=== PATIENT | male | born 1940 | race Caucasian/White ===

== ENCOUNTER 2016-07-03 13:36 | Emergency (ER) | payer MEDICARE, OTHER ==
[2016-07-03] MEDS ORDERED: Sodium Chloride 0.9% 10 ML Syringe FLUSH PRN (13:55)
--- NOTE | 2016-07-03 13:58 | EDM.PDOC ---
ED HPI GI/ABDOMINAL - General Chief Complaint: Gastrointestinal Problem Stated Complaint: AMBULANCE Time Seen by Provider: 07/03/16 13:55 Source of Information: Reports: Patient History Limitations: Reports: No limitations - History of Present Illness INITIAL COMMENTS - FREE TEXT/NARRATIVE: Richard Padron is a 76 year old male with a medical history of Parkinsons disease and hyperlipidemia presenting to the ED via EMS with bloody stools. He was constipated 3 days ago and yesterday he started having stools spontaneously. The stools were very dark and black. Then this morning he had 5 maroon to bright red colored watery stools all in a row. The amount of blood concerned him and he called EMS. His belly has been "queasy" for the last few days but he hasn't had pain. He denies vomiting. He denies a history of gastritis, diverticulitis, or colon cancer. He's never had a colonoscopy before because he does not doctor much. He takes a 325 mg aspirin daily due to a strong family history of stroke. He denies NSAID usage. He denies recent travel. He does not use alcohol or illicit drugs. He smoked cigarettes 25 years ago. - Related Data Allergies/ADRs: Allergies Allergy/AdvReac Type Severity Reaction Status Date / Time No Known Allergies Allergy Verified 07/03/16 13:50 Home Meds: Home Meds Aspirin 1 tab PO DAILY 07/03/16 [History] Carbidopa/Levodopa [Carbidopa-Levodopa 25-250] 1.5 tab PO QID 07/03/16 [History] Glucosamine HCl [Glucosamine] 750 mg PO BID 07/03/16 [History] atorvaSTATin [Lipitor] 20 mg PO DAILY 07/03/16 [History] Past Medical History Cardiovascular History: Reports: High cholesterol Neurological History: Reports: Other (see below) Other Neuro History: Parkinsons Disease Social & Family History - Family History Other HEENT Family History: Stroke ED ROS GENERAL - Review of Systems Review Of Systems: See Below Constitutional: Denies: fever, chills, fatigue, diaphoresis HEENT: Reports: No symptoms Respiratory: Denies: Shortness of Breath, Wheezing, Cough Cardiovascular: Denies: Chest pain, Dyspnea on exertion, Lightheadedness, Palpitations, Syncope Endocrine: Reports: no symptoms GI/Abdominal: Reports: Other (see HPI) : Reports: no symptoms Musculoskeletal: Reports: no symptoms Skin: Reports: no symptoms. Denies: rash Neurological: Reports: No Symptoms. Denies: Headache, Numbness, Paresthesia Psychiatric: Reports: No symptoms Hematologic/Lymphatic: Reports: no symptoms Immunologic: Reports: no symptoms ED EXAM, GI/ABD - Physical Exam Exam: See Below Exam Limited By: No limitations General Appearance: alert, WD/WN, no apparent distress Eyes: bilateral: normal appearance, EOMI Ears: normal external exam Nose: normal inspection, normal mucosa Throat/Mouth: Normal inspection, Normal lips, Normal teeth, Normal oropharynx, No airway compromise Head: atraumatic, normocephalic Neck: normal inspection, supple, non-tender Respiratory/Chest: other (diminished breath sounds throughout). No: respiratory distress, crackles, rales, rhonchi, wheezing GI/Abdominal: soft, non tender, no distention, hyperactive bowel sounds. No: guarding, rebound, rigidity, McBurney's sign, Matthews's sign Rectal (Males) Exam: Normal rectal tone, Bloody Stool, Heme + stool, Other ( pedunculated skin tag at the 2 oclock position on the external rectum). No: Mass, Perirectal abscess, Rectal fissure, Tenderness Back Exam: normal inspection, full range of motion Extremities: normal inspection, normal range of motion, no pedal edema Neurological: alert, oriented, CN II-XII intact, normal cognition, no motor/ sensory deficits Psychiatric: normal affect, normal mood Skin Exam: Warm, Dry, No rash Lymphatic: no adenopathy Course - Vital Signs Last Recorded V/S: Last Vital Signs Temp 97.6 F 07/03/16 13:37 Pulse 84 07/03/16 13:37 Resp 16 07/03/16 13:37 BP 109/65 07/03/16 13:37 Pulse Ox 97 07/03/16 13:37 - Orders/Labs/Meds Orders: Active Orders 24 hr Category Date Time Status Peripheral IV Care [RC] . DIRECTED Care 07/03/16 13:56 Active Nothing per Oral Now Diet [DIET] Diet 07/03/16 Dinner Active Sodium Chloride 0.9% [Saline Flush] Med 07/03/16 13:55 Active 10 ml FLUSH ASDIRECTED PRN Peripheral IV Insertion Adult [OM.PC] Routine Oth 07/03/16 13:55 Ordered Medication Orders Sodium Chloride (Saline Flush) 10 ml FLUSH ASDIRECTED PRN PRN Reason: Keep Vein Open Last Admin: 07/03/16 14:10 Dose: 10 ml Labs: Laboratory Tests 07/03/16 07/03/16 07/03/16 Range/Units 14:00 14:00 14:00 WBC 7.0 (5.0-10.0) 10^3/uL RBC 3.73 L (4.6-6.2) 10^6/uL Hgb 11.3 L (14.0-18.0) g/dL Hct 33.8 L (40.0-54.0) % MCV 90.6 (80-100) fL MCH 30.3 (27.0-34.0) pg MCHC 33.4 (33.0-35.0) g/dL Plt Count 226 (150-450) 10^3/uL Neut % (Auto) 76.5 H (42.2-75.2) % Lymph % (Auto) 16.6 L (20.5-50.1) % Sawyer % (Auto) 6.0 (2-8) % Eos % (Auto) 0.6 L (1.0-3.0) % Baso % (Auto) 0.3 (0.0-1.0) % Sodium 138 (135-145) mmol/L Potassium 4.9 (3.6-5.0) mmol/L Chloride 107 (101-111) mmol/L Carbon Dioxide 25.0 (21.0-31.0) mmol/L Anion Gap 10.9 BUN 40 H (7-18) mg/dL Creatinine 0.8 (0.6-1.3) mg/dL Est Cr Clr Drug Dosing 73.24 mL/min Estimated GFR (MDRD) > 60 BUN/Creatinine Ratio 50.00 Glucose 125 H (74-105) mg/dL Lactic Acid 1.2 (0.5-2.2) mmol/L Calcium 8.6 (8.4-10.2) mg/dl Total Bilirubin 1.1 H (0.2-1.0) mg/dL AST 15 (10-42) IU/L ALT < 5 L (10-60) IU/L Alkaline Phosphatase 38 L (42-121) IU/L Total Protein 5.7 L (6.7-8.2) g/dl Albumin 3.7 (3.2-5.5) g/dl Globulin 2.0 Albumin/Globulin Ratio 1.85 Lipase 24 (22-51) U/L Blood Type Gel Antibody Screen 07/03/16 Range/Units 14:00 WBC (5.0-10.0) 10^3/uL RBC (4.6-6.2) 10^6/uL Hgb (14.0-18.0) g/dL Hct (40.0-54.0) % MCV (80-100) fL MCH (27.0-34.0) pg MCHC (33.0-35.0) g/dL Plt Count (150-450) 10^3/uL Neut % (Auto) (42.2-75.2) % Lymph % (Auto) (20.5-50.1) % Sawyer % (Auto) (2-8) % Eos % (Auto) (1.0-3.0) % Baso % (Auto) (0.0-1.0) % Sodium (135-145) mmol/L Potassium (3.6-5.0) mmol/L Chloride (101-111) mmol/L Carbon Dioxide (21.0-31.0) mmol/L Anion Gap BUN (7-18) mg/dL Creatinine (0.6-1.3) mg/dL Est Cr Clr Drug Dosing mL/min Estimated GFR (MDRD) BUN/Creatinine Ratio Glucose (74-105) mg/dL Lactic Acid (0.5-2.2) mmol/L Calcium (8.4-10.2) mg/dl Total Bilirubin (0.2-1.0) mg/dL AST (10-42) IU/L ALT (10-60) IU/L Alkaline Phosphatase (42-121) IU/L Total Protein (6.7-8.2) g/dl Albumin (3.2-5.5) g/dl Globulin Albumin/Globulin Ratio Lipase (22-51) U/L Blood Type AB POSITIVE Gel Antibody Screen Negative Meds: Medications Generic Name Dose Route Start Last Admin Trade Name Freq PRN Reason Stop Dose Admin Sodium Chloride 10 ml 07/03/16 13:55 07/03/16 14:10 Saline Flush FLUSH 10 ml ASDIRECTED PRN Administration Keep Vein Open Discontinued Medications Generic Name Dose Route Start Last Admin Trade Name Wanda PRN Reason Stop Dose Admin Iopamidol 100 ml 07/03/16 14:28 07/03/16 15:00 Isovue-300 (61%) IVPUSH 07/03/16 14:29 100 ml ONETIME ONE Administration Pantoprazole Sodium 40 mg 07/03/16 14:30 07/03/16 14:30 Protonix Iv IVPUSH 07/03/16 14:31 40 mg ONETIME ONE Administration - Re-Assessments/Exams Free Text/Narrative Re-Assessment/Exam: Iv access obtained. Type and screen ordered. CBC shows hemoglobin of 11.3. Hemoccult stool testing positive. Kidney function normal. CT chest/abd/pelvis shows changes in the distal stomach and duodenum consistent with PUD without perforation. Protonix 40 mg IV push given. 07/03/16 16:00 Departure - Departure Time of Disposition: 16:03 Disposition: DC/Tfer to [facility] 02 Condition: fair Clinical Impression: Upper GI bleed - My Orders Last 24 Hours: My Active Orders 07/03/16 13:55 Sodium Chloride 0.9% [Saline Flush] 10 ml FLUSH ASDIRECTED PRN Peripheral IV Insertion Adult [OM.PC] Routine 07/03/16 13:56 Peripheral IV Care [RC] . DIRECTED 07/03/16 Dinner Nothing per Oral Now Diet [DIET] - Assessment/Plan Last 24 Hours: My Active Orders 07/03/16 13:55 Sodium Chloride 0.9% [Saline Flush] 10 ml FLUSH ASDIRECTED PRN Peripheral IV Insertion Adult [OM.PC] Routine 07/03/16 13:56 Peripheral IV Care [RC] . DIRECTED 07/03/16 Dinner Nothing per Oral Now Diet [DIET] Assessment:: Likely Upper GI Bleed Plan: Patient presenting with signs and symptoms of upper GI bleed. CT of the abdomen is supportive of this. Hemoglobin and vitals stable. Discussed the case with the hospitalist in [place] who has agreed to direct admission of the patient. Patient last ate at 8 AM ([place]). Protonix given. IV access obtained. Vitals are stable. [facility] ambulance for transfer.
[2016-07-03 14:11] VITALS: BP 109/65
[2016-07-03] MEDS ORDERED: Iopamidol 612 MG/ML 100 ML Bottle IVPUSH ONE (14:28)
[2016-07-03] MEDS ORDERED: Pantoprazole 40 MG Vial IVPUSH ONE (14:30)
[2016-07-03 14:35] LABS: CHLORIDE,CL 107 mmol/L (101-111); SODIUM,NA 138 mmol/L (135-145)
== END 2016-07-03 16:30 ==
LOC: DL.ED 13:36
DX: K92.2 Gastrointestinal hemorrhage, unspecified (principal); E78.00 Pure hypercholesterolemia, unspecified; Z79.82 Long term (current) use of aspirin; Z79.899 Other long term (current) drug therapy
CPT/HCPCS: 36415; 71260; 74177; 80053; 82272; 83605; 83690; 85025; 86850; 86900; 86901; 96374; 99285; C9113; J7050; Q9967; 99284